=== PATIENT | female | born 1980 | race Caucasian/White ===

== ENCOUNTER 2019-03-23 19:54 | Outpatient (CLI) | payer MEDICAID ==
[2019-03-23 20:52] LABS: ADD UMIC YES; UR ASCORBIC ACID NEGATIVE (NEGATIVE); UR BACTERIA FEW /HPF (NONE SEEN); UR BILIRUBIN (Dip) NEGATIVE (NEGATIVE); UR BLOOD (Dip) NEGATIVE (NEGATIVE); UR CLARITY CLOUDY (CLEAR); UR COLOR YELLOW (YELLOW); UR GLUCOSE (Dip) NEGATIVE (NEGATIVE); UR KETONES (Dip) NEGATIVE (NEGATIVE); UR LEUKOCYTE ESTERASE (Dip) TRACE Leu/ul (NEGATIVE); UR MUCUS FEW /HPF (NONE SEEN); UR NITRITE (Dip) NEGATIVE (NEGATIVE); UR RBC 1 /HPF (0-5); UR SQUAMOUS EPITHELIAL CELL MODERATE /HPF (FEW); UR TOTAL PROTEIN (Dip) NEGATIVE (NEGATIVE); UR UROBILINOGEN (Dip) NEGATIVE (NEGATIVE); UR WBC 6 /HPF (0-5)
== END 2019-03-23 23:35 | disposition home or self-care (01) ==
LOC: OBT 19:54 → L-D 20:00 → OBT 23:35
DX: O47.03 False labor before 37 completed weeks of gestation, third trimester (principal); O09.523 Supervision of elderly multigravida, third trimester; Z3A.30 30 weeks gestation of pregnancy
CPT/HCPCS: 76815; 76817; 76818; 81001

== ENCOUNTER 2019-05-10 01:05 | Inpatient (IN) | payer MEDICAID ==
[2019-05-10] MEDS ORDERED: CARBOPROST 250 MCG INJ IM ×2 (02:00→08:00)
[2019-05-10] MEDS ORDERED: LIDOCAINE 1% (MPF) 30 ML INJ INJ (02:00)
[2019-05-10] MEDS ORDERED: MISOPROSTOL 200 MCG TAB PR ×2 (02:00→08:00)
[2019-05-10] MEDS ORDERED: OXYTOCIN 30 UNITS/LR 500 ML IV ×3 (02:00→08:00)
[2019-05-10] MEDS ORDERED: BUTORPHANOL 2 MG INJ IV ×2 (02:00)
[2019-05-10] MEDS ORDERED: METHYLERGONOVINE 0.2 MG INJ IM ×2 (02:00→08:00)
[2019-05-10] MEDS ORDERED: IBUPROFEN 600 MG TAB PO (02:00)
[2019-05-10] MEDS: LACTATED RINGER'S 1,000 ML IV ×2 (02:21→03:33)
[2019-05-10 02:28] LABS: ADD MAN DIFF? NO
[2019-05-10 02:33] LABS: BASOPHIL # 0.1 10^3/ul (0.0-0.1); BASOPHILS % 0.7 % (0.0-2.0); EOSINOPHILS # 0.2 10^3/ul (0.0-0.5); EOSINOPHILS % 1.9 % (0.0-7.0); HEMATOCRIT 36.5 % (37.0-47.0); LYMPHOCYTES # 1.7 10^3/ul (0.8-2.9); LYMPHOCYTES % 14.3 % (15.0-51.0); MEAN CORPUSCULAR HEMOGLOBIN 29.7 pg (29.0-33.0); MEAN CORPUSCULAR HGB CONC 32.9 g/dl (32.0-37.0); MEAN CORPUSCULAR VOLUME 90.3 fl (82.0-101.0); MEAN PLATELET VOLUME 11.9 fl (7.4-10.4); MONOCYTE # 0.7 10^3/ul (0.3-0.9); MONOCYTES % 6.2 % (0.0-11.0); NEUTROPHILS % 76.2 % (39.0-77.0); PLATELET COUNT 201 10^3/UL (140-415); RED BLOOD COUNT 4.04 10^6/ul (4.20-5.40); RED CELL DISTRIBUTION WIDTH 13.2 % (11.5-14.5)
[2019-05-10 02:33] LABS: WHITE BLOOD COUNT 11.8 10^3/ul (4.8-10.8)
[2019-05-10] MEDS: AMPICILLIN 2 GM/NS (PMX) 100 ML IV (02:40)
[2019-05-10 02:53] LABS: INR 0.85; PROTIME 11.7 Sec (11.9-14.9); PT RATIO 0.9
[2019-05-10] MEDS ORDERED: FENTAnyl 2MCG/ML-ROPIV 0.2% 100 ML (02:53)
[2019-05-10 02:54] LABS: PARTIAL THROMBOPLASTIN TIME 26.9 Sec (23.0-35.0)
[2019-05-10] MEDS ORDERED: FENTAnyl 2MCG/ML-ROPIV 0.2% 100 ML BAG EPI (03:00)
[2019-05-10] MEDS ORDERED: NALOXONE (0.4 MG/ML) INJ IV (03:00)
[2019-05-10 03:29] LABS: HEPATITIS B SURFACE ANTIGEN NEGATIVE (NEGATIVE)
[2019-05-10] MEDS ORDERED: AMPICILLIN 1 GM/NS (PMX) 50 ML IV (06:00)
[2019-05-10] MEDS: OXYTOCIN 30 UNITS/LR 500 ML IV ×3 (07:06→13:48)
[2019-05-10] MEDS: LACTATED RINGER'S 1,000 ML IV* (07:51)
[2019-05-10] MEDS ORDERED: HYDROCODONE/APAP (5/325) TAB PO (08:00)
[2019-05-10] MEDS: IBUPROFEN 600 MG TAB PO ×3 (12:54→23:47)
[2019-05-10] MEDS: BENZOCAINE 20% 56 ML SPRAY TOP (12:54)
[2019-05-10] MEDS: LANOLIN HPA 1 PKT TOP (12:57)
[2019-05-10 15:12] LABS: RAPID PLASMA REAGIN NONREACTIVE (NR)
[2019-05-11] MEDS: IBUPROFEN 600 MG TAB PO ×4 (05:27→23:20)
[2019-05-11 08:52] LABS: ADD MAN DIFF? NO
[2019-05-11 08:56] LABS: BASOPHIL # 0.1 10^3/ul (0.0-0.1); BASOPHILS % 0.9 % (0.0-2.0); EOSINOPHILS # 0.3 10^3/ul (0.0-0.5); EOSINOPHILS % 2.8 % (0.0-7.0); HEMATOCRIT 35.8 % (37.0-47.0); HEMOGLOBIN 11.5 g/dl (12.0-16.0); LYMPHOCYTES # 2.2 10^3/ul (0.8-2.9); LYMPHOCYTES % 21.8 % (15.0-51.0); MEAN CORPUSCULAR HEMOGLOBIN 29.5 pg (29.0-33.0); MEAN CORPUSCULAR HGB CONC 32.1 g/dl (32.0-37.0); MEAN CORPUSCULAR VOLUME 91.8 fl (82.0-101.0); MEAN PLATELET VOLUME 11.8 fl (7.4-10.4); MONOCYTE # 0.5 10^3/ul (0.3-0.9); NEUTROPHIL # 6.9 10^3/ul (1.6-7.5); PLATELET COUNT 194 10^3/UL (140-415); RED CELL DISTRIBUTION WIDTH 13.7 % (11.5-14.5)
[2019-05-11] MEDS: GUAIFENESIN/CODEINE 5ML CUP PO (21:58)
[2019-05-12] MEDS: IBUPROFEN 600 MG TAB PO ×3 (05:30→17:34)
[2019-05-12] MEDS ORDERED: DIPHTH/TET/ACEL PERTUSS (ADULT) 0.5 ML VIAL IM* (09:00)
[2019-05-12] MEDS: GUAIFENESIN/CODEINE 5ML CUP PO ×2 (09:40→14:25)
== END 2019-05-12 19:10 | disposition home or self-care (01) | DRG 807 ==
LOC: OBT 01:05 → L-D 01:09 → OBT 01:45 → L-D 01:59 → PP1 08:54
PROVIDERS: Obstetrics & Gynecology
PROC: 10D07Z6 Extraction of Products of Conception, Vacuum, Via Natural or Artificial Opening (ICD-10-PCS; principal; 2019-05-10)
PROC: 0KQM0ZZ Repair Perineum Muscle, Open Approach (ICD-10-PCS; 2019-05-10)
DX: O76 Abnormality in fetal heart rate and rhythm complicating labor and delivery (principal); Z37.0 Single live birth; O70.1 Second degree perineal laceration during delivery; Z3A.37 37 weeks gestation of pregnancy
CPT/HCPCS: 62322; 85025; 85610; 85730; 86592; 86850; 86900; 86901; 87340